=== PATIENT | male | born 1945 | race Caucasian/White ===

== ENCOUNTER → 2023-10-12 13:10 | Outpatient (REF) | payer MEDICARE, OTHER, SELFPAY ==
[2023-10-12 14:18] LABS: % Basophils 0.6 % (0-2); % Eosinophils 0.8 % (0-6); % Immature Granulocytes 0.2 % (0-0.5); % Lymphocytes 72.5 % (20.5-51.1); % Monocytes 3.9 % (1.7-9.3); Absolute Basophils 0.2 10^3/uL (0-0.2); Absolute Eosinophils 0.3 10^3/uL (0-0.7); Absolute Immature Granulocytes 0.1 10^3/uL (0-0.05); Absolute Lymphocytes 23.3 10^3/uL (1.2-3.4); Absolute Monocytes 1.3 10^3/uL (0.1-0.6); Hematocrit 49.8 % (39.0-52.0); Hemoglobin 16.8 g/dL (13.0-18.0); Mean Corp Hgb Conc. 33.7 g/dL (33.0-37.0); Mean Corpuscular Hgb 28.7 pg (27.0-31.0); Mean Platelet Volume 10.3 fL (7.4-10.4); Nucleated Red Blood Cells % 0 % (-); Platelet Count 206 10^3/uL (130-400); Red Blood Cell Count 5.86 10^6/uL (4.70-6.10); Red Cell Dist. Width 14.7 % (11.5-14.5); White Blood Cell Count 32.1 10^3/uL (4.8-10.8)
[2023-10-12 15:18] LABS: ALT (SGPT) 27 U/L (0-50); AST (SGOT) 27 U/L (17-59); Albumin 4.4 g/dl (3.5-5.0); Alkaline Phosphatase 83 U/L (38-126); Blood Urea Nitrogen 14 mg/dl (9-20); Calcium 9.6 mg/dl (8.4-10.2); Carbon Dioxide 26 mmol/L (22-30); Chloride 101 mmol/L (98-107); Glucose 81 mg/dl (70-99); HDL Cholesterol 77 mg/dl; LDL Cholesterol, Calculated 57 mg/dl; Potassium 4.4 mmol/L (3.5-5.1); Sodium 136 mmol/L (135-145); Total Bilirubin 0.9 mg/dl (0.2-1.3); Total Cholesterol 160 mg/dl (50-199); Total Protein 6.8 g/dl (6.3-8.2); Triglyceride 133 mg/dl (10-149); Very Low Density Lipoprotein 26 mg/dl (0-30); eGFR > 60.00
== END ==
LOC: REG 13:10
PROVIDERS: ATTENDING PHYSICIAN Internal Medicine Hematology & Oncology; FAMILY PHYSICIAN Family Medicine
DX: C91.10 Chronic lymphocytic leukemia of B-cell type not having achieved remission (principal); M25.50 Pain in unspecified joint; I10 Essential (primary) hypertension; E78.5 Hyperlipidemia, unspecified
CPT/HCPCS: 36415; 80053; 80061; 85025; 86140; 86430

== ENCOUNTER → 2023-10-16 09:01 | Outpatient (REF) | payer MEDICARE, OTHER, SELFPAY | LOC: MRI 3T 09:01 | PROVIDERS: ATTENDING PHYSICIAN Orthopaedic Surgery; FAMILY PHYSICIAN Family Medicine | DX: M25.511 Pain in right shoulder (principal) | CPT/HCPCS: 73221 ==

== ENCOUNTER → 2023-11-20 18:01 | Outpatient (REF) | payer MEDICARE, OTHER, SELFPAY | LOC: CLAB 18:01 | PROVIDERS: ATTENDING PHYSICIAN Otolaryngology | DX: J32.9 Chronic sinusitis, unspecified (principal) | CPT/HCPCS: 87070; 87205 ==

== ENCOUNTER → 2023-11-25 13:54 | Outpatient (REF) | payer MEDICARE, OTHER, SELFPAY ==
[2023-11-25 14:58] LABS: Erythrocyte Sed Rate 27 mm/hour (0-20)
[2023-11-27 15:33] LABS: CCP Antibody IgG/IgA 8 Units (0-19)
== END ==
LOC: RAD 13:54
PROVIDERS: ATTENDING PHYSICIAN Physician Assistant; FAMILY PHYSICIAN Family Medicine
DX: M79.641 Pain in right hand (principal); M11.20 Other chondrocalcinosis, unspecified site
CPT/HCPCS: 36415; 73110; 73130; 84550; 85652; 86140; 86200

== ENCOUNTER → 2024-02-22 16:32 | Outpatient (REF) | payer MEDICARE, OTHER, SELFPAY ==
[2024-02-22 17:55] LABS: Erythrocyte Sed Rate 12 mm/hour (0-20)
== END ==
LOC: REG 16:32
PROVIDERS: ATTENDING PHYSICIAN Internal Medicine Rheumatology; FAMILY PHYSICIAN Family Medicine
DX: M11.20 Other chondrocalcinosis, unspecified site (principal); M19.90 Unspecified osteoarthritis, unspecified site
CPT/HCPCS: 36415; 85652; 86140

== ENCOUNTER → 2024-03-16 13:41 | Outpatient (REF) | payer MEDICARE, OTHER, SELFPAY | LOC: SDSPAT 13:41 | PROVIDERS: ATTENDING PHYSICIAN Surgery; FAMILY PHYSICIAN Family Medicine | DX: K43.2 Incisional hernia without obstruction or gangrene (principal) | CPT/HCPCS: 36415; 87070; 93005 ==

== ENCOUNTER 2024-03-31 05:45 | Day surgery (SDC) | payer MEDICARE, OTHER, SELFPAY ==
[2024-03-16 14:03] VITALS: BMI 27.6
[2024-03-31] VITALS (12 sets, daily range): BP systolic 113–135; BP diastolic 47–71; BMI 27.6
[2024-03-31] MEDS: TYLENOL 1000 MG PO (06:50)
--- NOTE | 2024-03-31 07:22 | W.SUR.PREOP ---
Pre-Operative Surgical Note
-
I have examined this patient prior to the performance of the scheduled procedure.
The patient's condition is unchanged from the time of the current History and
Physical and the patient is able to undergo the scheduled procedure.
--- NOTE | 2024-03-31 07:22 | HP.FOC2 ---
Focused History & Physical
Chief Complaint
HPI:
Chief Complaint: Incisional hernia
HPI / Indication for Planned Procedure: This is a 78-year-old male with a symptomatic incisional port site hernia
Relevant Past Medical History: Negative
Relevant Social History: Negative
Relevant Family History: Negative
Relevant Past Surgical History: Positive for (Laparoscopic cholecystectomy)
Review of Systems
Review of Pertinent Systems: All Systems Negative
Medication
See Medication form for detailed medications: Yes
Medication List (including Herbals & OTC):
atorvastatin 10 mg tablet 10 mg PO DAILY 03/15/18
levocetirizine 5 mg tablet (Xyzal) 1 tab PO HS 03/15/18
montelukast 10 mg tablet 10 mg PO DAILY 03/15/18
psyllium husk (aspartame) 3.4 gram oral powder packet (Metamucil Fiber Singles) 1 packet PO HS 03/15/18
rabeprazole 20 mg tablet,delayed release (AcipHex) 20 mg PO DAILY 03/15/18
acetaminophen 650 mg tablet,extended release 1,300 mg PO PRN PRN pain 03/25/24
benzonatate 200 mg capsule 200 mg PO DAILY 03/25/24
budesonide 0.5 mg/2 mL suspension for nebulization 0.5 mg irrigation BID 03/25/24
carboxymethylcellulose sodium 1 % eye liquid gel drops 1 drp BOTH EYES PRN PRN dry eyes 03/25/24
cyclosporine 0.05 % eye drops in a dropperette (Restasis) 1 drp BOTH EYES Q12H 03/25/24
famotidine 40 mg tablet 40 mg PO HS 03/25/24
fluticasone propionate 50 mcg/actuation nasal spray,suspension 1 spray intranasal HS 03/25/24
gentamicin 20 mg intranasal Daily 03/25/24
lactobacillus combination no.4 3 billion cell capsule (Probiotic) 3,000 mmu cells PO DAILY 03/25/24
mometasone 200 mcg/actuation HFA aerosol inhaler (Asmanex HFA) 2 puff inhalation BID 03/25/24
ndajbuio-xv-oazem 300 mcg-K 60 mcg-lycop 600 mcg-lutein 300 mcg tablet (Centrum Silver Men) 1 tab PO DAILY 03/25/24
roflumilast 500 mcg tablet 500 mcg PO DAILY 03/25/24
nystatin PO QID 03/31/24
sodium chloride, sodium bicarb-nasal rinse squeeze bottle with packet (Neilmed Sinus Rinse Complete with packet) 1 ea BID PRN sinus congestion 03/31/24
Medications Reviewed: Yes
Allergies and Reactions
Patient has Allergies: Yes
Noted Allergies and Reactions:
Allergy/AdvReac Type Severity Reaction Status Date / Time
adhesive Allergy Skin Tears Verified 03/31/24 06:36
amoxicillin [From Augmentin] Allergy C-Diff Verified 03/31/24 06:36
clavulanic acid Allergy C-Diff Verified 03/31/24 06:36
[From Augmentin]
levofloxacin [From Levaquin] Allergy Shaking Verified 03/31/24 06:36
legs
Pertinent Physical Exam
All Other Systems: Negative
Head/Neck: Normal
Diagnosis / Assessment
This is a 78-year-old male with a symptomatic incisional hernia.
Plan / Procedure
Will plan for an open incisional hernia repair with mesh.
Anesthesia/Sedation to be done by Anesthesia Provider: Yes
--- NOTE | 2024-03-31 08:30 | W.IMMPOSTOP ---
Surgical Immed Post Op Note
-
Primary Surgeon: Tre Apple MD
Assisting Surgeon: None
Pre-op Diagnosis: Incisional hernia
Post-op Diagnosis: Same
Procedure Performed: Open incisional hernia repair with mesh
Anesthesia Type: General
Specimen / Cultures: None
Estimated Blood Loss: 3 cc
Complications: None
Operative Findings: 2 cm incisional port site hernia containing omentum. Hernia sac opened and omentum reduced. The hernia sac was closed in the preperitoneal space was developed. A 6.[address] (coated polypropylene) mesh was placed
flat in the preperitoneal space. The mesh was secured to the overlying fascia using 0 PDS suture. The fascial defect was then closed in the transverse direction using 3 [id number] 0 PDS suture.
--- NOTE | 2024-03-31 08:33 | OR.RPT ---
Addendum entered and electronically signed by Tre Apple MD 04/01/24 13:07:
Preoperative diagnosis should read 'incisional hernia'
Postoperative diagnosis: Same
Original Note:
Operative Report
Operative Report
Patient Name: George Ruano
: 1945
Date of Operation: 03/31/2024
Preoperative Diagnosis: Umbilical hernia
Postoperative Diagnosis: Same
Procedure(s):
Open incisional hernia repair with mesh
Surgeon(s):
Dr. Apple
Hand Turner(s):
MAEVE Gamboa
Anesthesia: Local/MAC
Estimated Blood Loss: 3 cc
Urine Output: None
Drains/Lines/Implants: 6.[address] (coated polypropylene mesh)
Specimens: None
Indication for surgery:
The patient has a symptomatic incisional hernia. After review of their therapeutic options, they elected to pursue open repair.
Operative Findings: 2 cm incisional port site hernia containing omentum. Hernia sac opened and omentum reduced. The hernia sac was closed in the preperitoneal space was developed. A 6.[address] (coated polypropylene) mesh was placed
flat in the preperitoneal space. The mesh was secured to the overlying fascia using 0 PDS suture. The fascial defect was then closed in the transverse direction using 3 [id number] 0 PDS suture.
Details of the operation:
After successful induction of anesthesia, the patient was prepped and draped in the supine position. A team timeout was performed confirming administration of DVT prophylaxis, IV antibiotics and SCDs. The skin was anesthestized with 0.25% Marcaine
and a transverse incision was made over a natural skin line extending from his prior port site incision. The dissection was carried down to the fascia. The hernia sac was then encircled and carefully dissected off of the surrounding fascia. The
hernia sac was opened and found to contain omentum, part of this was adherent to the hernia sac which was freed off and the omentum was returned to the abdomen. The hernia sac was then closed in the preperitoneal space was developed. The defect
measured 2 cm. The subcutaneous fat was then dissected off of the anterior rectus sheath to create a pocket large enough to accommodate the mesh to ensure the mesh laid completely flat. The anchoring legs of the mesh were then secured at 12 and 6
o'clock position using horizontal mattress 0 PDS suture. The fascial defect was then closed in the transverse direction using 3 [id number] 0 PDS sutures. The Isamar's fascia was then closed with a running 3-0 Vicryl. The skin was then closed
with a running 4-0 Monocryl and then dressed with Dermabond. The patient returned to the Recovery Room in stable condition. Sponge and instrument counts were correct. No specimens sent to Pathology.
I was the attending physician and performed the procedure with assistance from the STAVE LOG CUT OFF SAW OPERATOR above. I was present for all portions of the case, excluding skin closure.
Tre Apple MD
== END 2024-03-31 10:10 | disposition home or self-care (01) ==
LOC: SDS 05:45
PROVIDERS: ATTENDING PHYSICIAN Surgery; FAMILY PHYSICIAN Family Medicine
DX: K43.2 Incisional hernia without obstruction or gangrene (principal)
CPT/HCPCS: 49591; 87070; C1781

== ENCOUNTER → 2024-05-12 12:38 | Outpatient (REF) | payer MEDICARE, OTHER, SELFPAY ==
[2024-05-12 14:03] LABS: Hematocrit 46.7 % (39.0-52.0); Hemoglobin 14.9 g/dL (13.0-18.0); Mean Corp Hgb Conc. 31.9 g/dL (33.0-37.0); Mean Corpuscular Hgb 28.4 pg (27.0-31.0); Mean Platelet Volume 9.5 fL (7.4-10.4); Platelet Count 258 10^3/uL (130-400); Red Blood Cell Count 5.25 10^6/uL (4.70-6.10); Red Cell Dist. Width 14.7 % (11.5-14.5); White Blood Cell Count 20.1 10^3/uL (4.8-10.8)
[2024-05-12 14:14] LABS: ALT (SGPT) 24 U/L (0-50); AST (SGOT) 24 U/L (17-59); Albumin 4.1 g/dl (3.5-5.0); Alkaline Phosphatase 78 U/L (38-126); Blood Urea Nitrogen 14 mg/dl (9-20); Calcium 9.2 mg/dl (8.4-10.2); Carbon Dioxide 27 mmol/L (22-30); Chloride 101 mmol/L (98-107); Glucose 98 mg/dl (70-99); HDL Cholesterol 76 mg/dl; LDL Cholesterol, Calculated 54 mg/dl; Potassium 4.1 mmol/L (3.5-5.1); Sodium 139 mmol/L (135-145); Total Bilirubin 0.6 mg/dl (0.2-1.3); Total Cholesterol 149 mg/dl (50-199); Total Protein 6.6 g/dl (6.3-8.2); Triglyceride 99 mg/dl (10-149); Very Low Density Lipoprotein 19 mg/dl (0-30); eGFR > 60.00
[2024-05-12 14:40] LABS: % Basophils 0.4 % (0-2); % Eosinophils 0.9 % (0-6); % Immature Granulocytes 0.2 % (0-0.5); % Lymphocytes 60.4 % (20.5-51.1); % Monocytes 9.4 % (1.7-9.3); % Neutrophils 28.7 % (42.2-75.2); Absolute Basophils 0.1 10^3/uL (0-0.2); Absolute Eosinophils 0.2 10^3/uL (0-0.7); Absolute Immature Granulocytes 0.1 10^3/uL (0-0.05); Absolute Lymphocytes 12.1 10^3/uL (1.2-3.4); Absolute Monocytes 1.9 10^3/uL (0.1-0.6); Absolute Neutrophils 5.7 10^3/uL (1.4-6.5); Nucleated Red Blood Cells % 0 % (-)
== END ==
LOC: REG 12:38
PROVIDERS: ATTENDING PHYSICIAN Specialist; FAMILY PHYSICIAN Family Medicine; REFERRING PHYSICIAN Internal Medicine Hematology & Oncology
DX: R97.20 Elevated prostate specific antigen [PSA] (principal); I10 Essential (primary) hypertension; E78.5 Hyperlipidemia, unspecified; C91.10 Chronic lymphocytic leukemia of B-cell type not having achieved remission
CPT/HCPCS: 36415; 80053; 80061; 84153; 85025

== ENCOUNTER → 2024-08-04 15:46 | Outpatient (REF) | payer MEDICARE, OTHER, SELFPAY | LOC: MRI 3T 15:46 | PROVIDERS: ATTENDING PHYSICIAN Physical Medicine & Rehabilitation; FAMILY PHYSICIAN Family Medicine | DX: M54.16 Radiculopathy, lumbar region (principal) | CPT/HCPCS: 72148 ==

== ENCOUNTER → 2024-08-16 16:08 | Outpatient (REF) | payer MEDICARE, OTHER, SELFPAY ==
[2024-08-16 16:47] LABS: Body Fluid Mononuclear 47.6 %; Body Fluid Polymorphonuclear 52.4 %; Body Fluid WBC 17000 /CUMM
[2024-08-16 16:52] LABS: Body Fluid Second Tech EYM
== END ==
LOC: REG 16:08
PROVIDERS: ATTENDING PHYSICIAN Student in an Organized Health Care Education/Training Program; FAMILY PHYSICIAN Family Medicine; OTHER PHYSICIAN Internal Medicine Rheumatology
DX: M25.561 Pain in right knee (principal)
CPT/HCPCS: 87015; 87070; 87075; 87205; 87476; 89051; 89060

== ENCOUNTER → 2024-10-11 13:13 | Outpatient (REF) | payer MEDICARE, OTHER, SELFPAY ==
[2024-10-11 13:52] LABS: Hematocrit 48.3 % (39.0-52.0); Hemoglobin 15.3 g/dL (13.0-18.0); Mean Corp Hgb Conc. 31.7 g/dL (33.0-37.0); Mean Corpuscular Hgb 27.4 pg (27.0-31.0); Mean Corpuscular Volume 86.6 fL (80.0-94.0); Mean Platelet Volume 9.2 fL (7.4-10.4); Platelet Count 247 10^3/uL (130-400); Red Blood Cell Count 5.58 10^6/uL (4.70-6.10); Red Cell Dist. Width 15.6 % (11.5-14.5); White Blood Cell Count 19.1 10^3/uL (4.8-10.8)
[2024-10-11 14:20] LABS: Erythrocyte Sed Rate 20 mm/hour (0-20)
[2024-10-11 14:33] LABS: % Basophils 0.7 % (0-2); % Eosinophils 2.3 % (0-6); % Immature Granulocytes 0.2 % (0-0.5); % Lymphocytes 54.4 % (20.5-51.1); % Monocytes 6.1 % (1.7-9.3); % Neutrophils 36.3 % (42.2-75.2); Absolute Basophils 0.1 10^3/uL (0-0.2); Absolute Eosinophils 0.4 10^3/uL (0-0.7); Absolute Lymphocytes 10.4 10^3/uL (1.2-3.4); Absolute Monocytes 1.2 10^3/uL (0.1-0.6); Absolute Neutrophils 6.9 10^3/uL (1.4-6.5); Nucleated Red Blood Cells % 0 % (-)
[2024-10-11 14:37] LABS: ALT (SGPT) 24 U/L (0-50); AST (SGOT) 22 U/L (17-59); Alkaline Phosphatase 81 U/L (38-126); Blood Urea Nitrogen 13 mg/dl (9-20); Calcium 9.4 mg/dl (8.4-10.2); Carbon Dioxide 27 mmol/L (22-30); Chloride 103 mmol/L (98-107); Glucose 84 mg/dl (70-99); HDL Cholesterol 61 mg/dl; LDL Cholesterol, Calculated 57 mg/dl; Potassium 4.5 mmol/L (3.5-5.1); Sodium 140 mmol/L (135-145); Total Bilirubin 0.7 mg/dl (0.2-1.3); Total Cholesterol 137 mg/dl (50-199); Total Protein 6.2 g/dl (6.3-8.2); Triglyceride 97 mg/dl (10-149); Very Low Density Lipoprotein 19 mg/dl (0-30); eGFR > 60.00
[2024-10-11 15:47] LABS: Uric Acid 4.8 mg/dl (3.5-8.5)
== END ==
LOC: REG 13:13
PROVIDERS: ATTENDING PHYSICIAN Internal Medicine Hematology & Oncology; FAMILY PHYSICIAN Family Medicine; REFERRING PHYSICIAN Student in an Organized Health Care Education/Training Program
DX: C91.10 Chronic lymphocytic leukemia of B-cell type not having achieved remission (principal); E78.5 Hyperlipidemia, unspecified; G89.29 Other chronic pain; M10.9 Gout, unspecified; M11.20 Other chondrocalcinosis, unspecified site; M19.90 Unspecified osteoarthritis, unspecified site; M25.511 Pain in right shoulder; M25.512 Pain in left shoulder; M79.641 Pain in right hand; Z79.899 Other long term (current) drug therapy
CPT/HCPCS: 36415; 80053; 80061; 84550; 85025; 85652; 86140

== ENCOUNTER → 2024-12-18 13:05 | Outpatient (REF) | payer MEDICARE, OTHER, SELFPAY | LOC: PAVMRI 13:05 | PROVIDERS: ATTENDING PHYSICIAN Student in an Organized Health Care Education/Training Program | DX: M25.561 Pain in right knee (principal); M25.562 Pain in left knee | CPT/HCPCS: 73721 ==

== ENCOUNTER → 2025-02-22 13:56 | Outpatient (REF) | payer MEDICARE, OTHER, SELFPAY | LOC: RCS 13:56 | PROVIDERS: ATTENDING PHYSICIAN Physical Medicine & Rehabilitation; FAMILY PHYSICIAN Family Medicine | DX: Z01.818 Encounter for other preprocedural examination (principal) | CPT/HCPCS: 93005 ==

== ENCOUNTER → 2025-03-14 11:54 | Outpatient (REF) | payer MEDICARE, OTHER, SELFPAY ==
[2025-03-14 13:01] LABS: Hematocrit 47.8 % (39.0-52.0); Hemoglobin 15.2 g/dL (13.0-18.0); Mean Corp Hgb Conc. 31.8 g/dL (33.0-37.0); Mean Corpuscular Volume 85.8 fL (80.0-94.0); Platelet Count 194 10^3/uL (130-400); Red Cell Dist. Width 17.2 % (11.5-14.5)
[2025-03-14 13:29] LABS: Nucleated Red Blood Cells % 0 % (-)
[2025-03-14 13:57] LABS: ALT (SGPT) 26 U/L (0-50); AST (SGOT) 22 U/L (17-59); Albumin 4.0 g/dl (3.5-5.0); Alkaline Phosphatase 88 U/L (38-126); Blood Urea Nitrogen 15 mg/dl (9-20); Calcium 9.3 mg/dl (8.4-10.2); Carbon Dioxide 28 mmol/L (22-30); Chloride 101 mmol/L (98-107); Glucose 85 mg/dl (70-99); HDL Cholesterol 91 mg/dl; LDL Cholesterol, Calculated 61 mg/dl; Potassium 4.5 mmol/L (3.5-5.1); Sodium 137 mmol/L (135-145); Total Protein 6.5 g/dl (6.3-8.2); Very Low Density Lipoprotein 15 mg/dl (0-30); eGFR > 60.00
[2025-03-14 14:00] LABS: C-Reactive Protein 30.60 mg/L (0.0-10.00)
== END ==
LOC: REG 11:54
PROVIDERS: ATTENDING PHYSICIAN Student in an Organized Health Care Education/Training Program; FAMILY PHYSICIAN Family Medicine
DX: G89.29 Other chronic pain (principal); M10.9 Gout, unspecified; M11.20 Other chondrocalcinosis, unspecified site; M19.90 Unspecified osteoarthritis, unspecified site; M25.511 Pain in right shoulder; M25.512 Pain in left shoulder; M79.641 Pain in right hand; M79.89 Other specified soft tissue disorders; Z51.81 Encounter for therapeutic drug level monitoring; Z79.899 Other long term (current) drug therapy; C91.10 Chronic lymphocytic leukemia of B-cell type not having achieved remission; E78.5 Hyperlipidemia, unspecified
CPT/HCPCS: 36415; 80053; 80061; 85025; 85652; 86140

== ENCOUNTER → 2025-05-11 15:51 | Outpatient (REF) | payer MEDICARE, OTHER, SELFPAY ==
[2025-05-11 18:21] LABS: PSA, Total - Diagnostic 3.08 ng/ml (0.0-4.0)
== END ==
LOC: REG 15:51
PROVIDERS: ATTENDING PHYSICIAN Specialist; FAMILY PHYSICIAN Family Medicine
DX: R97.20 Elevated prostate specific antigen [PSA] (principal)
CPT/HCPCS: 36415; 84153